=== PATIENT | male | born 1935 | race Caucasian/White ===

== ENCOUNTER 2016-08-11 10:33 | Outpatient (CLI) | payer MEDICARE ==
[~2016-08-11] VITALS: Ht 181.6 cm; Wt 83.0 kg
[2016-08-11] MEDS ORDERED: CHOL100045 PO (14:33)
[2016-08-11] MEDS ORDERED: VITA400T9 PO (14:33)
[2016-08-11] MEDS ORDERED: MULT1TAB69 PO (14:33)
[2016-08-12] MEDS ORDERED: PANT40TA3 PO (10:00)
== END 2016-08-11 14:35 ==
LOC: PREOP 10:33
PROVIDERS: ATTEND Internal Medicine
DX: Z01.818 Encounter for other preprocedural examination (principal); R10.13 Epigastric pain

== ENCOUNTER 2016-08-12 08:20 | Day surgery (SDC) | payer MEDICARE, OTHER ==
--- NOTE | 2016-08-11 17:12 | HISTORY AND PHYSICAL ---
DATE OF SERVICE: HISTORY OF PRESENT ILLNESS: The patient is an 81-year-old white male who presented to my office the morning of 08/11/2016 reporting about a 4-month history of reflux sounding symptoms getting progressively worse. He had a particularly bad episode when he was bending forward working on some fence this weekend. He felt fluid coming up into his throat, a burning sensation. He then became lightheaded and had to sit down. He denied associated chest pain. On several occasions, he has had to sit up at night due to fluid sensation in his throat. He has had epigastric pain with this, but again denies chest pain. He reports diminished appetite and has been feeling more fatigued as of late. He has not been aware of melena or bright red blood per rectum. He denies lower quadrant abdominal pain, but has had right upper quadrant and epigastric pain. He mentioned these symptoms to Dr. 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 He was set up for sonogram next week. Nausea has not been a predominant symptom. He denies any pain radiating through to his back, but there is a strong family history for cholecystitis necessitating gallbladder surgery in 2 first-degree relatives. PAST MEDICAL HISTORY: Is significant for past hypertension. He is not currently on medication. Blood pressures have been normal since significant weight loss following radiation therapy. His weight was down 1 pound compared to last office weight 4 months ago. He has no known history of coronary artery disease or pulmonary disease. SOCIAL HISTORY: He is retired. He was a previous head of the athletic department at [employer] with no past smoking history and no significant drinking history. PHYSICAL EXAMINATION: GENERAL: Reveals an elderly white male who appears to be in mild distress, reporting epigastric discomfort. Reporting mild epigastric discomfort. VITAL SIGNS: Blood pressure 130/76, heart rate 72 and regular. HEENT: Significant for absence of the right zygomatic arch with facial depression. There is a nodular area on the right forehead, above the right eyebrow with a little bit of central on vellication measuring 1 x 1 cm in size. There is small amount of desquamating material in the center. It is nontender. The patient reports it has been stable in size for last month and then present for about 2 months. He had been given some cream to apply per Dr. Loomis. He has poor dentition with reduction in jaw range of motion. Bottom front teeth are gone. CHEST: Clear. CARDIOVASCULAR: Revealed a regular rate and rhythm without murmur, S3 or S4. ABDOMEN: Soft, supple. Mild epigastric discomfort to palpation was present without mass or organomegaly. Bowel sounds are positive. No bruits are noted. EXTREMITIES: Reveal no cyanosis, clubbing or edema. ASSESSMENT AND PLAN: 1. Epigastric pain. The patient was set up for esophagogastroduodenoscopy evaluation for further investigation. Acute cholecystitis is in the differential, but I feel a little less likely. The patient is on no prescription medication and denies aspirin or nonsteroidal medication use. He will remain n.p.o. after midnight for esophagogastroduodenoscopy in the morning. 2. 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 Will probably recommend referral back to Dr. Loomis for excision. Job ID: [id number] DocumentID: [id number] Dictated Date: 08/11/2016 16:44:36 Bit Setter Date: 08/11/2016 17:12:28 Dictated By: KELSEY SMITH MD [facility]
[~2016-08-12] VITALS: Ht 181.6 cm; Wt 83.0 kg
[~2016-08-12 08:20] MED LIST: CHOL100045 PO; MULT1TAB69 PO; VITA400T9 PO
--- NOTE | 2016-08-12 08:32 | Pre-Op Note & Conscious Sedat ---
Pre-Operative Progress Note H&P Reviewed The H&P was reviewed, patient examined and no changes noted. Date H&P Reviewed: Aug 12, 2016 Time H&P Reviewed: 08:32 Conscious Sedation Pre-Proced ASA Class: 2 Airway Mallampati Classification: (pitka's point appropriate class) I. II. III, IV Lungs Heart ASA score ASA 1: a normal healthy patient ASA 2: a patient with a mild systemic disease (mid diabetes, controlled hypertension, obesity ASA 3: a patient with a severe systemic disease that limits activity (angina , COPD, prior Myocardial infarction) ASA 4: a patient with an incapacitating disease that is a constant threat to life (CHF, renal failure) ASA 5: a moribund patient not expected to survive 24 hrs. (ruptured aneurysm) ASA 6: a declared brain patient whose organs are being harvested. For emergent operations, add the letter E after the classification Grade 2 Sedation Plan: Analgesia, Amnesia, Plan communicated to team members, Discussed options with patient/fam, Discussed risks with patient/fam Note The patient is an appropriate candidate to undergo the planned procedure, sedation, and anesthesia. The patient immediately re-assessed prior to indication. KELSEY SMITH MD Aug 12, 2016 08:32
[2016-08-12 08:35] VITALS: BP 143/79
[2016-08-12] MEDS ORDERED: D5 LR IV SOLUTION 1,000 ML IV PRN (08:35)
[2016-08-12] MEDS ORDERED: NALOXONE 0.4 MG/ML 1 ML (NARCAN) VIAL IVP PRN (08:45)
[2016-08-12] MEDS ORDERED: HURRICAINE EXT TUBE (BENZOCAINE) XX PRN (08:45)
[2016-08-12] MEDS ORDERED: MIDAZOLAM 2 MG/2 ML (VERSED) VIAL IVP PRN (08:45)
[2016-08-12] MEDS ORDERED: LIDOCAINE JELLY 2% (XYLOCAINE) 5 ML TUBE MM PRN (08:45)
[2016-08-12] MEDS ORDERED: fentaNYL INJECTION 100 MCG/2 ML AMP IVP PRN (08:45)
[2016-08-12] MEDS ORDERED: FLUMAZENIL (ROMAZICON) 0.1 MG/ML 5 ML VIAL INJ PRN (08:45)
[2016-08-12] MEDS ORDERED: LIDOCAINE JELLY 2% (XYLOCAINE) 5 ML TUBE ONE (09:12)
[2016-08-12] MEDS ORDERED: MIDAZOLAM 2 MG/2 ML (VERSED) VIAL ONE ×3 (09:12→09:13)
[2016-08-12] MEDS ORDERED: fentaNYL INJECTION 100 MCG/2 ML AMP ONE (09:12)
[2016-08-12] MEDS ORDERED: HURRICAINE EXT TUBE (BENZOCAINE) ONE (09:13)
[2016-08-12] MEDS ORDERED: PANT40TA3 PO (10:00)
[2016-08-12 10:10] VITALS: BP 108/58
[2016-08-12 10:28] LABS: BASOPHILS % (AUTO) 0 % (0-10); EOSINOPHILS # (AUTO) 0.1 10^3/uL (0.0-0.3); EOSINOPHILS % (AUTO) 3 % (0-10); LYMPHOCYTES # (AUTO) 1.1 X 10^3 (1.0-4.0); LYMPHOCYTES % (AUTO) 22 % (12-44); MEAN CORPUSCULAR HEMOGLOBIN 30 PG (25-34); MEAN CORPUSCULAR HGB CONC 33 G/DL (32-36); MEAN CORPUSCULAR VOLUME 90 FL (80-99); MEAN PLATELET VOLUME 9.1 FL (7.4-10.4); MONOCYTES # (AUTO) 0.5 X 10^3 (0.0-1.0); MONOCYTES % (AUTO) 10 % (0-12); NEUTROPHILS # (AUTO) 3.3 X 10^3 (1.8-7.8); NEUTROPHILS % (AUTO) 65 % (42-75); PLATELET COUNT 185 10^3/uL (130-400); RED BLOOD COUNT 4.46 10^6/uL (4.35-5.85); RED CELL DISTRIBUTION WIDTH 12.4 % (10.0-14.5); WHITE BLOOD COUNT 5.1 10^3/uL (4.3-11.0)
[2016-08-12 10:40] VITALS: BP 130/67
[2016-08-12 10:47] VITALS: BP 130/67
[2016-08-12 10:56] LABS: ALANINE AMINOTRANSFERASE 12 U/L (0-55); ALBUMIN 3.7 GM/DL (3.2-4.5); ANION GAP 9 MMOL/L (5-14); ASPARTATE AMINO TRANSFERASE 18 U/L (5-34); BILIRUBIN,TOTAL 0.7 MG/DL (0.1-1.0); BLOOD UREA NITROGEN 14 MG/DL (7-18); BUN/CREATININE RATIO 13 (0-20); CARBON DIOXIDE 24 MMOL/L (21-32); CHLORIDE 108 MMOL/L (98-107); CREATININE SERUM 1.04 MG/DL (0.60-1.30); GFR ESTIMATED > 60; GLUCOSE 109 MG/DL (70-105); HEMOLYSIS 7 (-100-29); ICTERUS 0.5 (-100-1.9); LIPEMIA 5 (-100-49); POTASSIUM 4.5 MMOL/L (3.6-5.0); SODIUM 141 MMOL/L (135-145); TOTAL PROTEIN 7.1 GM/DL (6.4-8.2)
--- NOTE | 2016-08-12 12:38 | OPERATIVE REPORT ---
DATE OF SERVICE: ESOPHAGOGASTRODUODENOSCOPY SUMMARY EGD is performed for the evaluation of epigastric pain with reflux sounding symptoms. DESCRIPTION OF PROCEDURE: The patient was placed in the left lateral decubitus position. The endoscope was inserted in the oral cavity and under direct visualization the esophagus was intubated. Endoscope was passed down the esophagus through the stomach and second portion of the duodenum. Careful inspection was made as the endoscope was withdrawn. The patient tolerated the procedure well. FINDINGS: Posterior hypopharynx, arytenoid aperture and true and false vocal folds were unremarkable. Photographic documentation was obtained. Proximal and mid esophagus were unremarkable. There were 2 erosions noted in the distal esophagus roughly 3 and 7 cm proximal to the GE junction. The lower esophageal sphincter was somewhat narrowed and widely patent through the procedure, measuring roughly 2 x 2 cm in diameter with erythema and shallow ulcerations. Findings compatible with LA grade IV reflux esophagitis. No nodularity was noted. No evidence to suggest Martin's change was present. Photograph was obtained and then multiple biopsies were obtained and submitted for histopathology. This did not have the appearance of a ring. Small to medium size hiatal hernia is present with several centimeters of the stomach being present above the level of the diaphragm. The cardia of the stomach was unremarkable. Antral erythema with several small erosions were noted. Biopsies obtained and submitted for histopathology and Helicobacter evaluation. The Pylorus and the pyloric channel were unremarkable. There were patchy areas of duodenal inflammation and several shallow erosions. The second portion of the duodenum was slightly erythematous with no erosion or ulceration. ASSESSMENT AND PLAN: LA grade IV erosive esophagitis by definition with stricture formation was present. It was widely patent, roughly measuring 2 x 2 cm in size. The patient denies dysphagia, just notes free reflux due to this and a hiatal hernia. The patient also had antral and to a lesser extent fundal gastritis in addition to duodenitis. Considering this, a gastrin level, a CBC and a CMP were sent off prior to the initiation of proton pump inhibitor therapy in the form of pantoprazole 40 mg daily. I will have the patient follow up in 1 month to monitor his progress. Further recommendations pending blood testing. Considering a small but real possibility for Brayan-Fraser syndrome. The patient does not report any problems with diarrhea at this time. Job ID: [id number] DocumentID: [id number] Dictated Date: 08/12/2016 11:48:34 Cabinet Mounter Date: 08/12/2016 12:37:34 Dictated By: KELSEY SMITH MD
--- OUTSIDE RECORDS SUMMARY | 2016-08-17 12:15 | XMS REPORT | Continuity of Care Document ---
Author Author [facility] Organization [facility] Address Unknown Phone Unavailable Care Team Providers Care Waste And Batting Waste Chopper Name Role Phone Ramirez Rick Amor PCP [phone] Source Comments Some departments are not documenting in the electronic medical record. If you do not see the information that you expected, contact Release of Information in the Health Information Management department at [phone] for further assistance in locating additional records.[facility] Active Allergies and Adverse Reactions No Known Allergies Current Medications Prescription Sig. Disp. Refills Start End Date Status Date DM/P-EPHED/ACETAMINOPH/DO Take by mouth at bedtime Active XYLAM (NYQUIL PO) daily. ACETAMINOPHEN/DIPHENHYDRA Take by mouth at bedtime Active MINE (TYLENOL PM PO) daily. MINERAL Place into or around Active OIL/PETROLATUM,WHITE eye(s). (SYSTANE NIGHTTIME OP) NAPROXEN SODIUM (ALEVE Take by mouth as Needed. Active PO) psyllium (METAMUCIL) Take by mouth as Needed. Active packet OXYCODONE HCL (OXYCODONE Take by mouth. Active PO) Active Problems Problem Noted Date Carcinoma of maxillary sinus (HCC) 10/28/2010 Personal history of irradiation 10/28/2010 Swelling, mass, or lump in head and neck 03/06/2008 Social History Tobacco Use Types Packs/Day Years Used Date Former Smoker Cigarettes 0.5 15 Quit: 02/27/1970 Smokeless Tobacco: Never Used Alcohol Use Drinks/Week oz/Week Comments No Last Filed Vital Signs Vital Sign Reading Time Taken Blood Pressure 162/89 07/09/2015 9:47 AM CDT Pulse 53 07/09/2015 9:47 AM CDT Temperature 36.4 C (97.5 F) 07/03/2013 9:15 AM CDT Respiratory Rate - - Height 1.803 m (5' 11") 07/09/2015 9:47 AM CDT Weight 82.283 kg (181 lb 6.4 oz) 07/09/2015 9:47 AM CDT Body Mass Index 25.31 07/09/2015 9:47 AM CDT Oxygen Saturation 96% 07/03/2013 9:15 AM CDT Plan of Care Health Maintenance Due Date Last Done Comments Physical (Comprehensive) 1942 Exam Pertussis Vaccine 1946 Tetanus Vaccine 1952 Shingles Vaccine 1995 Prevnar/Pneumovax (#1) 2000 Influenza Vaccine 10/28/2016 Results from Last 3 Months Not on file
--- OUTSIDE RECORDS SUMMARY | 2016-08-17 12:15 | XMS REPORT | Continuity of Care Document ---
Author Author [facility] Organization [facility] Address Unknown Phone Unavailable Allergies Active Description Code Type Severity Reaction Onset Reported/Identified Relationship to Patient Clinical Status Yes No Known Drug Allergies [id number] Drug Allergy Unknown N/ A 08/12/2016 Medications Problems Date Dx Coded Attending Type Code Diagnosis Diagnosed By 08/07/2014 ALLEN GROSS, JOHN Khan Ot 160.2 08/07/2014 ALLEN GROSS, JOHN Khan Ot 525.9 08/07/2014 ALLEN GROSS, JOHN Khan Ot 526.89 08/14/2014 ALLEN GROSS, JOHN Khan Ot 160.2 08/14/2014 ALLEN GROSS, JOHN Khan Ot 525.9 08/14/2014 ALLEN GROSS, JOHN Khan Ot 526.89 08/19/2014 ALLEN GROSS, JOHN Khan Ot 160.2 08/19/2014 ALLEN GROSS, JOHN Khan Ot 525.9 08/19/2014 ALLEN GROSS, JOHN Khan Ot 526.89 08/20/2014 ALLEN GROSS, JOHN Khan Ot 160.2 08/20/2014 ALLEN GROSS, JOHN Khan Ot 525.9 08/20/2014 ALLEN GROSS, JOHN Khan Ot 526.89 08/25/2014 ALLEN GROSS, JOHN Khan Ot 160.2 08/25/2014 ALLEN GROSS, JOHN Khan Ot 525.9 08/25/2014 ALLEN GROSS, JOHN Khan Ot 526.89 08/25/2014 ALLEN GROSS, JOHN Khan Ot 160.2 08/25/2014 ALLEN GROSS, JOHN Khan Ot 525.9 08/25/2014 ALLEN GROSS, JOHN Khan Ot 526.89 09/01/2014 ALLEN GROSS, JOHN Khan Ot 160.2 MAL IAN MAXILLARY SINUS 09/01/2014 ALLEN GROSS, JOHN Khan Ot 525.9 DENTAL DISORDER NOS 09/01/2014 ALLEN GROSS, JOHN Khan Ot 526.89 JAW DISEASE NEC 09/02/2014 ALLEN GROSS, JOHN Khan Ot 160.2 09/02/2014 JOHN VILLA MD Ot 525.9 09/02/2014 ALLEN GROSS, JOHN Khan Ot 526.89 09/04/2014 ALLEN GROSS, JOHN Khan Ot 160.2 09/04/2014 ALLEN GROSS, JOHN Khan Ot 525.9 09/04/2014 ALLEN GROSS, JOHN Khan Ot 526.89 Procedures Results Test Result Range Complete blood count (CBC) with automated white blood cell (WBC) differential - 08/12/16 10:17 Blood leukocytes automated count (number/volume) 5.1 10*3/ uL 4.3-11.0 Blood erythrocytes automated count (number/volume) 4.46 10*6 /uL 4.35-5.85 Venous blood hemoglobin measurement (mass/volume) 13.4 g/dL 13.3-17.7 Blood hematocrit (volume fraction) 40 % 40-54 Automated erythrocyte mean corpuscular volume 90 [foz_us] 80-99 Automated erythrocyte mean corpuscular hemoglobin (mass per erythrocyte) 30 pg 25-34 Automated erythrocyte mean corpuscular hemoglobin concentration measurement ( mass/volume) 33 g/dL 32-36 Automated erythrocyte distribution width ratio 12.4 % 10.0-14.5 Automated blood platelet count (count/volume) 185 10*3/uL 130-400 Automated blood platelet mean volume measurement 9.1 [foz_us ] 7.4-10.4 Automated blood neutrophils/100 leukocytes 65 % 42-75 Automated blood lymphocytes/100 leukocytes 22 % 12-44 Blood monocytes/100 leukocytes 10 % 0-12 Automated blood eosinophils/100 leukocytes 3 % 0-10 Automated blood basophils/100 leukocytes 0 % 0-10 Blood neutrophils automated count (number/volume) 3.3 10*3 1.8-7.8 Blood lymphocytes automated count (number/volume) 1.1 10*3 1.0-4.0 Blood monocytes automated count (number/volume) 0.5 10*3 0.0-1.0 Automated eosinophil count 0.1 10*3/uL 0.0-0.3 Automated blood basophil count (count/volume) 0.0 10*3/uL 0.0-0.1 Comprehensive metabolic panel - 08/12/16 10:17 Serum or plasma sodium measurement (moles/volume) 141 mmol/ L 135-145 Serum or plasma potassium measurement (moles/volume) 4.5 mmol/L 3.6-5.0 Serum or plasma chloride measurement (moles/volume) 108 mmol /L 98-107 Carbon dioxide 24 mmol/L 21-32 Serum or plasma anion gap determination (moles/volume) 9 mmol/L 5-14 Serum or plasma urea nitrogen measurement (mass/volume) 14 mg/dL 7-18 Serum or plasma creatinine measurement (mass/volume) 1.04 mg /dL 0.60-1.30 Serum or plasma urea nitrogen/creatinine mass ratio 13 0-20 Serum or plasma creatinine measurement with calculation of estimated glomerular filtration rate > NRG Serum or plasma glucose measurement (mass/volume) 109 mg/dL 70-105 Serum or plasma calcium measurement (mass/volume) 9.0 mg/dL 8.5-10.1 Serum or plasma total bilirubin measurement (mass/volume) 0.7 mg/dL 0.1-1.0 Serum or plasma alkaline phosphatase measurement (enzymatic activity/volume) 83 U/L 40-136 Serum or plasma aspartate aminotransferase measurement (enzymatic activity/ volume) 18 U/L 5-34 Serum or plasma alanine aminotransferase measurement (enzymatic activity/volume ) 12 U/L 0-55 Serum or plasma protein measurement (mass/volume) 7.1 g/dL 6.4-8.2 Serum or plasma albumin measurement (mass/volume) 3.7 g/dL 3.2-4.5 Serum gastrin measurement - 08/12/16 10:17 Serum gastrin measurement < pg/mL 0-100 Encounters ACCT No. Visit Date/Time Discharge Status Pt. Type Provider Facility Loc./Unit Complaint [id number] 08/12/2016 08:20:00 2016 10:55:00 DIS Outpatient KELSEY SMITH MD [facility] ENDO EPIGASTRIC PAIN [id number] 08/11/2016 10:33:00 2016 14:35:00 DIS Outpatient KELSEY SMITH MD [facility] PREOP EPIGASTRIC PAIN [id number] 09/01/2014 08:21:00 2014 10:00:00 DIS Outpatient JOHN VILLA MD [facility] WOUNDCARE [id number] 08/16/2016 08:00:00 PEN Preadmit LUPILLO SADLER APRN [facility] RAD RUQ PAIN,NAUSEA,REFLUX
== END 2016-08-12 10:55 | disposition home or self-care (01) ==
LOC: ENDO 08:20
PROVIDERS: ATTEND Internal Medicine
DX: K20.8 Other esophagitis (principal); K44.9 Diaphragmatic hernia without obstruction or gangrene; K29.50 Unspecified chronic gastritis without bleeding; K29.80 Duodenitis without bleeding; Z85.22 Personal history of malignant neoplasm of nasal cavities, middle ear, and accessory sinuses; Z92.3 Personal history of irradiation
CPT/HCPCS: 36415; 80053; 82941; 85025

== ENCOUNTER → 2016-08-16 | Outpatient (CLI) | payer MEDICARE, OTHER ==
[~2016-08-16] MED LIST changes: +HYDR-3816 PO; +PANT40TA3 PO
--- NOTE | 2016-08-16 09:58 | Diagnostic Imaging Report ---
PROCEDURE: US Gallbladder. TECHNIQUE: Multiple real-time grayscale images were obtained over the right upper quadrant in various projections. INDICATION: Right upper quadrant pain. FINDINGS: The pancreas is obscured by bowel gas. The left hepatic lobe demonstrates a complex lesion with cystic components, septations, and a hyperechoic focus within it. There is no internal vascularity demonstrated. The lesion measures 1.6 x 2 x 1.7 cm and is probably a complicated cyst with septations and mild debris. Through transmission is noted. A minimally complicated cyst in the right hepatic lobe is also seen measuring 2 x 2.3 cm. The gallbladder demonstrates a mobile 2.5 cm stone. No wall thickening or pericholecystic fluid. The sonographic Humphrey sign is reportedly negative. The CBD is obscured by bowel gas. The right kidney is 10 cm in length. There is a 1.7 cm upper pole right kidney cyst. No hydronephrosis. No ascites or fluid collection. IMPRESSION: Cholelithiasis. Minimally complicated hepatic cysts are seen. The left hepatic cyst is associated with internal echogenicity which is probably related to internal debris. A followup ultrasound in 4 months is recommended to ensure stability. Dictated by: Dictated on workstation # [id number]
== END ==
LOC: RAD 07:38
PROVIDERS: ATTEND Nurse Practitioner Family
DX: K80.20 Calculus of gallbladder without cholecystitis without obstruction (principal); K76.89 Other specified diseases of liver; K21.9 Gastro-esophageal reflux disease without esophagitis
CPT/HCPCS: 76705

== ENCOUNTER 2016-08-17 09:13 | Outpatient (CLI) | payer MEDICARE, OTHER ==
[~2016-08-17] VITALS: Ht 181.6 cm; Wt 83.0 kg
[~2016-08-17 09:13] MED LIST changes: -HYDR-3816 PO
[2016-08-18] MEDS ORDERED: HYDR-3816 PO (16:54)
== END 2016-08-17 10:12 ==
LOC: PREOP 09:13
PROVIDERS: ATTEND Surgery Pediatric Surgery
DX: Z01.818 Encounter for other preprocedural examination (principal); K80.20 Calculus of gallbladder without cholecystitis without obstruction

== ENCOUNTER 2016-08-18 10:32 | Day surgery (SDC) | payer MEDICARE, OTHER ==
[~2016-08-18] VITALS: Ht 181.6 cm; Wt 83.0 kg
--- NOTE | 2016-08-18 10:44 | Progress Note-Pre Operative ---
Pre-Operative Progress Note H&P Reviewed The H&P was reviewed, patient examined and no changes noted. Date Seen by Provider: Aug 18, 2016 Time Seen by Provider: 10:44 Date H&P Reviewed: Aug 18, 2016 Time H&P Reviewed: 10:44 Pre-Operative Diagnosis: chronic calculous cholecystitis JURGEN PITTS MD Aug 18, 2016 10:44 am
[2016-08-18] MEDS ORDERED: ACETAMINOPHEN 325 MG TABLET/CAPLET (TYLENOL) PO PRN (10:45)
[2016-08-18] MEDS ORDERED: morphine INJ 10 MG/ML 1ML (SYR OR VIAL) IVP PRN (10:45)
[2016-08-18] MEDS ORDERED: ONDANSETRON 4 MG/2 ML (SDV) Z0FRAN IVP PRN ×2 (10:45→17:00)
[2016-08-18] MEDS ORDERED: HYDROcodone/APAP 5 MG/325 MG (LORTAB) TAB PO ONE (10:45)
[2016-08-18 11:10] LABS: MEAN PLATELET VOLUME 9.5 FL (7.4-10.4); RED BLOOD COUNT 4.51 10^6/uL (4.35-5.85); RED CELL DISTRIBUTION WIDTH 12.9 % (10.0-14.5); WHITE BLOOD COUNT 4.6 10^3/uL (4.3-11.0)
[2016-08-18] MEDS ORDERED: CATHETER FLUSH 10 ML SYR IV PRN (11:15)
[2016-08-18] MEDS ORDERED: ceFAZolin 1 GM/NS 50 ML IVPB IV ONE ×2 (11:15)
[2016-08-18] MEDS ORDERED: LACTATED RINGERS 1,000 ML IV PRN (11:21)
[2016-08-18 11:25] VITALS: BP 153/77
[2016-08-18] MEDS ORDERED: FAMOTIDINE 20MG/2ML IV (PEPCID) IV ONE (11:30)
[2016-08-18] MEDS ORDERED: BUP/EPI 0.5% 1:200,000 (SENSORCAINE) 30 ML VIAL ONE (13:27)
[2016-08-18] MEDS ORDERED: ONDANSETRON 4 MG/2 ML (SDV) Z0FRAN ONE (14:51)
[2016-08-18] MEDS ORDERED: DEXAMETHASONE PF 10 MG/ML (DECADRON) VIAL ONE (14:51)
[2016-08-18] MEDS ORDERED: MIDAZOLAM 2 MG/2 ML (VERSED) VIAL ONE (14:51)
[2016-08-18] MEDS ORDERED: fentaNYL INJECTION 100 MCG/2 ML AMP ONE (14:51)
[2016-08-18] MEDS ORDERED: SEVOFLURANE (ULTANE) 15 ML INHAL SOLN ONE (14:51)
[2016-08-18] MEDS ORDERED: LACTATED RINGERS 1,000 ML IV ONE ×2 (14:51→16:37)
[2016-08-18] MEDS ORDERED: ROCURONIUM 50 MG/5 ML (ZEMURON) VIAL IV ONE (14:51)
[2016-08-18] MEDS ORDERED: PROPOFOL INJECTION 50 ML IV ONE (14:51)
[2016-08-18] MEDS ORDERED: SUCCINYLCHOLINE INJ 100 MG/5 ML SYR ONE (15:02)
[2016-08-18] MEDS ORDERED: LIDOCAINE PF 0.5% 50 ML (XYLOCAINE) VIAL ONE (15:04)
[2016-08-18] MEDS ORDERED: NEOSTIGMINE (BLOXIVERZ ) 1 MG/1ML 10 ML VIAL ONE (16:34)
[2016-08-18] MEDS ORDERED: GLYCOPYRROLATE 0.2 MG/ML (ROBINUL) 2 ML VIAL ONE (16:34)
[2016-08-18] MEDS ORDERED: ATROPINE INJ 0.4 MG/ML SDV ONE (16:37)
--- NOTE | 2016-08-18 16:53 | Progress Note-Post Operative ---
Post-Operative Progess Note Surgeon (s)/Cattle Trader (s) Surgeon JURGEN PITTS MD Cattle Trader: erin webster IDENTIFICATION OFFICER Pre-Operative Diagnosis chronic calculous cholecystitis Post-Operative Diagnosis same Procedure & Operative Findings Date of Procedure 08/18/16 Procedure Performed/Findings laparoscopic cholecystectomy Anesthesia Type GET Estimated Blood Loss Estimated blood loss (mL): minimal Specimens/Packing Specimens Removed gallbladder JURGEN PITTS MD Aug 18, 2016 4:53 pm
[2016-08-18] MEDS ORDERED: HYDR-3816 PO (16:54)
--- NOTE | 2016-08-18 16:55 | Discharge Inst-Surgical ---
D/C Lap Instructions-GISSELLE New, Converted, or Re-Newed RX: RX on Chart Follow Up Appt in 2 weeks Activity as tolerated No driving for 24 hours No driving while on pain medications Incentive Spirometry use every 2 hours while awake Regular Diet Symptoms to Report: Fever over 101 degree F, Nausea/Vomiting Infection Signs and Symptoms to report: Increased redness, Foul odor of wound, Increased drainage Bathing instructions: May shower Operative Area Clean/Dry; Keep incision clean/dry If any problems/questions: Contact your physician or go to Emergency Room JURGEN PITTS MD Aug 18, 2016 4:55 pm
[2016-08-18] MEDS ORDERED: MEPERIDINE (DEMEROL) INJ 50 MG/ML IVP PRN (17:00)
[2016-08-18] MEDS: morphine INJ 10 MG/ML 1ML (SYR OR VIAL) IVP PRN ×2 (17:17→17:24)
[2016-08-18 17:50] VITALS: BP 177/79
[2016-08-18] MEDS ORDERED: HYDROcodone/APAP 7.5 MG/325 MG (LORTAB, LORCET PLUS) TABLET PO PRN (18:00)
--- NOTE | 2016-08-18 19:16 | OPERATIVE REPORT ---
DATE OF SERVICE: 08/18/2016 ATTENDING PRIMARY CARE PHYSICIAN: Rick Ramirez MD. PREOPERATIVE DIAGNOSIS: Chronic calculous cholecystitis. POSTOPERATIVE DIAGNOSIS: Chronic calculous cholecystitis. PROCEDURE: Laparoscopic cholecystectomy. SURGEON: Jurgen Pitts MD. UNIVERSITY SERVICES PROGRAM ASSOCIATE: Venkatesh Plummer APRN. ANESTHESIA: General endotracheal. ESTIMATED BLOOD LOSS: Minimal. FINDINGS: Chronic gallbladder wall dilatation as well as one large solitary gallstone. DISPOSITION: The patient tolerated the procedure well. INDICATIONS: The patient is an 81-year-old male with right upper abdominal quadrant pain. He has also had issues with reflux, nausea as well as right upper abdominal quadrant pain with radiation towards the back that would occur more after eating meals. He had a CT scan performed which did show gallstones; however, this was asymptomatic at that time. He reports that this has become much more symptomatic over time. DESCRIPTION OF PROCEDURE: The patient was brought to the operating room, laid supine on the table. After adequate IV pain and sedating medications and general endotracheal intubation, the abdomen was prepped and draped in standard surgical fashion. A 0.5% Marcaine with epinephrine was then used to anesthetize the overlying skin in the left upper abdominal quadrant. A small transverse skin incision made using a 15 blade. An 0 silk suture was applied to the medial aspect of the incision for retraction and a Veress needle was inserted with a low opening pressure of 0 mmHg and the abdomen was insufflated to 15 mmHg pressure. The Veress needle removed and a 5 mm Xcel trocar placed followed by a 5 mm 45-degree angle laparoscope. A four-quadrant abdominal exploration was performed. A dilated gallbladder with chronic inflammatory changes was identified. There were no signs of acute cholecystitis. The liver, omentum, stomach and small bowel appeared normal. Under direct visualization, we then proceeded to place a supraumbilical 10 mm port after the skin and peritoneum were anesthetized using 0.5% Marcaine and a transverse skin incision made using a 15 blade. In a similar manner, a right upper abdominal quadrant opening 5 mm port was placed. The patient was then placed in reverse Trendelenburg position as well as plane right side up, left side down. The fundus of the gallbladder was then retracted anteriorly and superiorly. The hepatoduodenal ligament was then dissected using electrocautery and hook instrument. The entire critical view of safety was then identified including the cystic duct and artery going into the gallbladder, the triangle of Calot as well as the liver behind the proximal gallbladder. A timeout was then taken and the cystic duct and artery were clipped proximally, distally and cut with EndoShears. The gallbladder was then dissected off the liver bed using electrocautery on the hook instrument with visualization of good hemostasis. The gallbladder was removed through the 10 mm port site using an EndoCatch bag. The fascia and peritoneum to the 10 mm port site was then closed using multiple 3-0 Vicryl interrupted sutures using the Flo-Noah device. The abdomen was desufflated and remaining ports removed. All skin incisions were closed using 4-0 Monocryl running subcuticular sutures. Wounds were then cleaned and covered with Dermabond. The patient tolerated the procedure well. We will start IV and oral pain medication as well as a clear liquid diet. Once he is tolerating clears and has good pain control with oral pain medication and is ambulating well, we will discharge him home. Job ID: [id number] DocumentID: [id number] Dictated Date: 08/18/2016 17:01:04 Will Call Clerk Date: 08/18/2016 19:16:04 Dictated By: JURGEN PITTS MD MTDD
[2016-08-18 20:00] VITALS: BP 171/77
[2016-08-18 20:55] VITALS: BP 171/77
--- NOTE | 2016-08-19 07:56 | Anesthesia-General Post-Op ---
General Patient Condition Mental Status/LOC: Same as Preop Cardiovascular: Satisfactory Nausea/Vomiting: Absent Respiratory: Satisfactory Pain: Controlled Complications: Absent Post Op Complications Complications None Follow Up Care/Instructions Patient Instructions None needed. Anesthesia/Patient Condition Patient Condition Patient is doing well, no complaints, stable vital signs, no apparent adverse anesthesia problems. No complications reported per nursing. D/C home per [facility] Criteria: Yes STEVE WALTERS CRNA Aug 19, 2016 07:56
--- OUTSIDE RECORDS SUMMARY | 2016-08-22 13:39 | XMS REPORT | Continuity of Care Document ---
Author Author [facility] Organization [facility] Address Unknown Phone Unavailable Care Team Providers Care Fabric Stretcher Name Role Phone Ramirez Rick Amor PCP [phone] Source Comments Some departments are not documenting in the electronic medical record. If you do not see the information that you expected, contact Release of Information in the Health Information Management department at [phone] for further assistance in locating additional records.[facility] Active Allergies and Adverse Reactions No Known [...]
--- OUTSIDE RECORDS SUMMARY | 2016-08-22 13:39 | XMS REPORT | Continuity of Care Document ---
Author Author [facility] Organization [facility] Address Unknown Phone Unavailable Allergies Active Description Code Type Severity Reaction Onset Reported/Identified Relationship to Patient Clinical Status Yes No Known Drug Allergies [id number] Drug Allergy Unknown N/ A 08/12/2016 Medications [...] 09/04/2014 ALLEN GROSS, JOHN Khan Ot 526.89 08/20/2016 KELSEY SMITH MD, Ot K20.8 OTHER ESOPHAGITIS 08/20/2016 KELSEY SMITH MD, Ot K29.50 UNSPECIFIED CHRONIC GASTRITIS WITHOUT BL 08/20/2016 KELSEY SMITH MD, Ot K29.80 DUODENITIS WITHOUT BLEEDING 08/20/2016 KELSEY SMITH MD, Ot K44.9 DIAPHRAGMATIC HERNIA WITHOUT OBSTRUCTION 08/20/2016 KELSEY SMITH MD, Ot 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[place], [place] 08/20/2016 KELSEY SMITH MD, Ot Z92.3 PERSONAL HISTORY OF IRRADIATION Procedures Results Test Result Range Complete blood [...] 10:17 Serum gastrin measurement < pg/mL 0-100 Automated blood complete blood count (hemogram) panel - 08/18/16 10:55 Blood leukocytes automated count (number/volume) 4.6 10*3/ uL 4.3-11.0 Blood erythrocytes automated count (number/volume) 4.51 10*6 /uL 4.35-5.85 Venous blood hemoglobin measurement (mass/volume) 13.6 g/dL 13.3-17.7 Blood hematocrit (volume fraction) 40 % 40-54 Automated erythrocyte mean corpuscular volume 89 [foz_us] 80-99 Automated erythrocyte mean corpuscular hemoglobin (mass per erythrocyte) 30 pg 25-34 Automated erythrocyte mean corpuscular hemoglobin concentration measurement ( mass/volume) 34 g/dL 32-36 Automated erythrocyte distribution width ratio 12.9 % 10.0-14.5 Automated blood platelet count (count/volume) 177 10*3/uL 130-400 Automated blood platelet mean volume measurement 9.5 [foz_us ] 7.4-10.4 Methicillin resistant Staphylococcus aureus (MRSA) screening culture - 10:55 Methicillin resistant Staphylococcus aureus (MRSA) screening culture NEG NRG Encounters ACCT No. Visit Date/Time Discharge Status Pt. Type Provider Facility Loc./Unit Complaint [id number] 08/18/2016 10:32:00 2016 21:05:00 DIS Outpatient JURGEN PITTS MD [facility] SDC [place] [id number] 08/17/2016 09:13:00 2016 10:12:00 DIS Outpatient JURGEN PITTS MD [facility] PREOP [place] [id number] 08/12/2016 08:20:00 2016 10:55:00 DIS Outpatient KELSEY SMITH MD [facility] ENDO EPIGASTRIC PAIN [id number] 08/11/2016 10:33:00 2016 14:35:00 DIS Outpatient KELSEY SMITH MD [facility] PREOP EPIGASTRIC PAIN [id number] 09/01/2014 08:21:00 2014 10:00:00 DIS Outpatient JOHN VILLA MD [facility] WOUNDCARE [id number] 08/16/2016 07:38:00 ACT Outpatient LUPILLO SADLER APRN [facility] RAD RUQ PAIN,NAUSEA,REFLUX
== END 2016-08-18 21:05 | disposition home or self-care (01) ==
LOC: SDC 10:32 → 4TH 18:16 → SDC 21:05
PROVIDERS: ATTEND Surgery
DX: K80.10 Calculus of gallbladder with chronic cholecystitis without obstruction (principal); I10 Essential (primary) hypertension; Z85.22 Personal history of malignant neoplasm of nasal cavities, middle ear, and accessory sinuses; Z87.891 Personal history of nicotine dependence
CPT/HCPCS: 36415; 85027; 87081; 94664

== ENCOUNTER → 2017-10-26 | Outpatient (CLI) | payer MEDICARE, OTHER ==
[~2017-10-26] MED LIST changes: +HYDR-34 PO
== END ==
LOC: LABNPT 16:42
PROVIDERS: ATTEND Specialist
DX: M27.2 Inflammatory conditions of jaws (principal); Z92.3 Personal history of irradiation
CPT/HCPCS: 87070; 87077; 87205

== ENCOUNTER → 2017-10-31 | Outpatient (CLI) | payer MEDICARE, OTHER | LOC: WOUNDCARE 12:17 | PROVIDERS: ATTEND Surgery | DX: M27.2 Inflammatory conditions of jaws (principal); L59.8 Other specified disorders of the skin and subcutaneous tissue related to radiation; C31.0 Malignant neoplasm of maxillary sinus | CPT/HCPCS: 99212 ==

== ENCOUNTER → 2017-11-15 | Outpatient (CLI) | payer MEDICARE, OTHER | LOC: WOUNDCARE 08:09 | PROVIDERS: ATTEND Surgery | DX: M27.2 Inflammatory conditions of jaws (principal); L59.8 Other specified disorders of the skin and subcutaneous tissue related to radiation; C31.0 Malignant neoplasm of maxillary sinus | CPT/HCPCS: 99212 ==

== ENCOUNTER → 2017-11-17 | Outpatient (CLI) | payer MEDICARE, OTHER ==
[2017-11-17 08:22] LABS: BASOPHILS % (AUTO) 0 % (0-10); EOSINOPHILS # (AUTO) 0.1 10^3/uL (0.0-0.3); EOSINOPHILS % (AUTO) 3 % (0-10); HEMATOCRIT 40 % (40-54); HEMOGLOBIN 13.8 G/DL (13.3-17.7); LYMPHOCYTES # (AUTO) 1.3 X 10^3 (1.0-4.0); LYMPHOCYTES % (AUTO) 32 % (12-44); MEAN CORPUSCULAR HEMOGLOBIN 31 PG (25-34); MEAN CORPUSCULAR HGB CONC 34 G/DL (32-36); MEAN CORPUSCULAR VOLUME 89 FL (80-99); MEAN PLATELET VOLUME 9.3 FL (7.4-10.4); MONOCYTES # (AUTO) 0.5 X 10^3 (0.0-1.0); MONOCYTES % (AUTO) 11 % (0-12); NEUTROPHILS # (AUTO) 2.2 X 10^3 (1.8-7.8); NEUTROPHILS % (AUTO) 54 % (42-75); PLATELET COUNT 197 10^3/uL (130-400); RED BLOOD COUNT 4.52 10^6/uL (4.35-5.85); RED CELL DISTRIBUTION WIDTH 13.2 % (10.0-14.5); WHITE BLOOD COUNT 4.1 10^3/uL (4.3-11.0)
[2017-11-17 08:43] LABS: ALANINE AMINOTRANSFERASE 13 U/L (0-55); ALKALINE PHOSPHATASE 90 U/L (40-136); BILIRUBIN,TOTAL 0.6 MG/DL (0.1-1.0); BUN/CREATININE RATIO 14; CALCIUM 9.2 MG/DL (8.5-10.1); CARBON DIOXIDE 23 MMOL/L (21-32); CHLORIDE 109 MMOL/L (98-107); GFR ESTIMATED > 60; GLUCOSE 97 MG/DL (70-105); POTASSIUM 4.1 MMOL/L (3.6-5.0); SODIUM 140 MMOL/L (135-145); TOTAL PROTEIN 7.3 GM/DL (6.4-8.2)
== END ==
LOC: LAB 08:08
PROVIDERS: ATTEND Surgery
DX: M27.2 Inflammatory conditions of jaws (principal); L59.8 Other specified disorders of the skin and subcutaneous tissue related to radiation; C31.0 Malignant neoplasm of maxillary sinus
CPT/HCPCS: 36415; 80053; 85025

== ENCOUNTER → 2017-11-22 | Outpatient (CLI) | payer MEDICARE, OTHER | LOC: WOUNDCARE 07:56 | PROVIDERS: ATTEND Surgery | DX: M27.2 Inflammatory conditions of jaws (principal); L59.8 Other specified disorders of the skin and subcutaneous tissue related to radiation; C31.0 Malignant neoplasm of maxillary sinus | CPT/HCPCS: 99212 ==

== ENCOUNTER 2017-11-24 08:00 | Outpatient (RCR) | payer MEDICARE, OTHER | END 2017-11-26 | disposition home or self-care (01) | LOC: WOUNDCARE 08:00 | PROVIDERS: ATTEND Surgery | DX: M27.2 Inflammatory conditions of jaws (principal); L59.8 Other specified disorders of the skin and subcutaneous tissue related to radiation; C31.0 Malignant neoplasm of maxillary sinus | CPT/HCPCS: 99183 ==

== ENCOUNTER → 2017-11-29 | Outpatient (CLI) | payer MEDICARE, OTHER | LOC: WOUNDCARE 07:59 | PROVIDERS: ATTEND Surgery | DX: M27.2 Inflammatory conditions of jaws (principal); L59.8 Other specified disorders of the skin and subcutaneous tissue related to radiation; C31.0 Malignant neoplasm of maxillary sinus | CPT/HCPCS: 99212 ==

== ENCOUNTER → 2017-12-06 | Outpatient (CLI) | payer MEDICARE, OTHER | LOC: WOUNDCARE 07:57 | PROVIDERS: ATTEND Surgery | DX: M27.2 Inflammatory conditions of jaws (principal); L59.8 Other specified disorders of the skin and subcutaneous tissue related to radiation; C31.0 Malignant neoplasm of maxillary sinus | CPT/HCPCS: 99212 ==

== ENCOUNTER → 2017-12-13 | Outpatient (CLI) | payer MEDICARE, OTHER | LOC: WOUNDCARE 07:59 | PROVIDERS: ATTEND Surgery | DX: M27.2 Inflammatory conditions of jaws (principal); L59.8 Other specified disorders of the skin and subcutaneous tissue related to radiation; C31.0 Malignant neoplasm of maxillary sinus | CPT/HCPCS: 99212 ==

== ENCOUNTER → 2017-12-20 | Outpatient (CLI) | payer MEDICARE, OTHER | LOC: WOUNDCARE 07:56 | PROVIDERS: ATTEND Surgery | DX: M27.2 Inflammatory conditions of jaws (principal); L59.8 Other specified disorders of the skin and subcutaneous tissue related to radiation; C31.0 Malignant neoplasm of maxillary sinus | CPT/HCPCS: 99212 ==

== ENCOUNTER → 2017-12-27 | Outpatient (CLI) | payer MEDICARE, OTHER | LOC: WOUNDCARE 07:56 | PROVIDERS: ATTEND Surgery | DX: M27.2 Inflammatory conditions of jaws (principal); L59.8 Other specified disorders of the skin and subcutaneous tissue related to radiation; C31.0 Malignant neoplasm of maxillary sinus; L98.492 Non-pressure chronic ulcer of skin of other sites with fat layer exposed | CPT/HCPCS: 99212 ==

== ENCOUNTER → 2018-01-03 | Outpatient (CLI) | payer MEDICARE, OTHER | LOC: WOUNDCARE 12:21 | PROVIDERS: ATTEND Surgery | DX: M27.2 Inflammatory conditions of jaws (principal); L59.8 Other specified disorders of the skin and subcutaneous tissue related to radiation; C31.0 Malignant neoplasm of maxillary sinus; L98.496 Non-pressure chronic ulcer of skin of other sites with bone involvement without evidence of necrosis | CPT/HCPCS: 99212 ==

== ENCOUNTER 2018-01-10 08:59 | Outpatient (RCR) | payer MEDICARE, OTHER | END 2018-01-10 12:00 | disposition home or self-care (01) | LOC: WOUNDCARE 08:59 | PROVIDERS: ATTEND Surgery | DX: M27.2 Inflammatory conditions of jaws (principal); L59.8 Other specified disorders of the skin and subcutaneous tissue related to radiation; C31.0 Malignant neoplasm of maxillary sinus | CPT/HCPCS: 99183 ==

== ENCOUNTER → 2018-01-10 | Outpatient (CLI) | payer MEDICARE, OTHER | LOC: WOUNDCARE 08:58 | PROVIDERS: ATTEND Orthopaedic Surgery Hand Surgery | DX: M27.2 Inflammatory conditions of jaws (principal); L59.8 Other specified disorders of the skin and subcutaneous tissue related to radiation; C31.0 Malignant neoplasm of maxillary sinus | CPT/HCPCS: 99212 ==

== ENCOUNTER 2020-11-25 05:30 | Outpatient (RCR) | payer MEDICARE, OTHER ==
[~2020-11-25] VITALS: Ht 180.3 cm; Wt 68.0 kg
[~2020-11-25 05:30] MED LIST changes: +ASCO100T6 PO; +ASPI-586 PO; +ATOR40TA PO; +CYAN200014 PO; +CYCL10TA9 PO; +MULT-567 PO; -MULT1TAB69 PO; -PANT40TA3 PO; +PANT40TA52 PO; +SILD100T67 PO
== END 2020-11-25 11:13 | disposition home or self-care (01) ==
LOC: PREOP 05:30
PROVIDERS: ATTEND Internal Medicine
DX: Z01.812 Encounter for preprocedural laboratory examination (principal); R13.10 Dysphagia, unspecified; R63.4 Abnormal weight loss; Z20.822 Contact with and (suspected) exposure to COVID-19
CPT/HCPCS: 87635

== ENCOUNTER 2020-11-27 08:53 | Day surgery (SDC) | payer MEDICARE, OTHER ==
--- NOTE | 2020-11-19 06:08 | HISTORY AND PHYSICAL ---
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 He reports that generally he has been feeling well, but he has had 2 episodes of dysphagia. The last one was yesterday to chicken, he swallowed some water, but did not feel like it went down after he ate chicken, it took about 15 minutes for symptoms to subside. He denied any coughing or choking. Prior to that it had happened with the popcorn 4 or 5 days ago. Previously, he denied dysphagia. He was unaware of weight loss, but his weight was down to an all time low for him at 170.6 representing a 7.6 pound weight loss since I last weighed him in April of this year. He denies melena or bright red blood per rectum. He denies epigastric or abdominal pain. He has rare episodes of heartburn and he does not usually take anything for. FAMILY HISTORY: Pertinent for son with esophageal cancer diagnosed in his 50s. 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 He was diagnosed in 12/2017 and had extensive surgery, radiation, chemotherapy with no evidence for recurrence. PHYSICAL EXAMINATION: GENERAL: Reveals a white male, appears to be in no acute distress. VITAL SIGNS: Weight 170.6 pounds, blood pressure 120/70. 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 NECK: Revealed no JVD, adenopathy or bruits. CHEST: Clear to auscultation. CARDIOVASCULAR: Reveals a regular rate and rhythm without significant murmur, S3 or S4. ABDOMEN: Soft, supple without mass, organomegaly or tenderness. EXTREMITIES: Reveal no cyanosis, clubbing or edema. ASSESSMENT AND PLAN: 1. Dysphagia with weight loss. The patient is being set up for EGD based the symptoms alone, but in addition, his son was diagnosed with esophageal cancer in his 50s. He was given high dose flu shot today with followup appointment in 6 months, at which time we will need to repeat blood testing including a basic metabolic panel and lipid panel with CBC. 2. Not mentioned above, the patient requested Viagra refill for his erectile dysfunction, which has worked well for him in the past. He was given 300 mg Viagra. Job ID: [id number] DocumentID: [id number] Dictated Date: 11/12/2020 11:33:13 Cell Tester Date: 11/12/2020 11:57:20 Dictated By: KELSEY SMITH MD [facility]
[~2020-11-27] VITALS: Ht 180.3 cm; Wt 68.0 kg
[2020-11-27] MEDS ORDERED: LACTATED RINGERS 1,000 ML IV STA (09:07)
[2020-11-27] MEDS ORDERED: LIDOCAINE JELLY 2% 6 ML SYRINGE MM PRN (09:15)
[2020-11-27] MEDS ORDERED: HURRICAINE EXT TUBE (BENZOCAINE) XX PRN (09:15)
[2020-11-27 09:16] VITALS: BP 159/76
[2020-11-27] MEDS ORDERED: LACTATED RINGERS 1,000 ML IV ONE (09:16)
[2020-11-27] MEDS ORDERED: PROPOFOL INJECTION 50 ML IV ONE (10:32)
[2020-11-27] MEDS ORDERED: MIDAZOLAM 2 MG/2 ML (VERSED) VIAL ONE (10:32)
[2020-11-27] MEDS ORDERED: KETAMINE SYRINGE 50 MG/5 ML SYRINGE ONE (10:32)
--- NOTE | 2020-11-27 10:37 | Pre-Op Note & Conscious Sedat ---
Pre-Operative Progress Note H&P Reviewed The H&P was reviewed, patient examined and no changes noted. Date H&P Reviewed: Nov 27, 2020 Time H&P Reviewed: 10:00 Conscious Sedation Pre-Proced ASA Score 2 For ASA 3 and 4: Consider anesthesia and medical clearance. Also, for patients with a history of failed moderate sedation consider anesthesia. Airway Lungs Heart ASA score ASA 1: a normal healthy patient ASA 2: a patient with a mild systemic disease (mid diabetes, controlled hypertension, obesity ASA 3: a patient with a severe systemic disease that limits activity (angina, COPD, prior Myocardial infarction) ASA 4: a patient with an incapacitating disease that is a constant threat to life (CHF, renal failure) ASA 5: a moribund patient not expected to survive 24 hrs. (ruptured aneurysm) ASA 6: a declared brain- patient whose organs are being harvested. For emergent operations, add the letter E after the classification Mallampati Classification Grade 3 Sedation Plan Analgesia, Amnesia, Plan communicated to team members, Discussed options with patient/fam, Discussed risks with patient/fam The patient is an appropriate candidate to undergo the planned procedure, sedation, and anesthesia. The patient immediately re-assessed prior to indication. KELSEY SMITH MD Nov 27, 2020 10:37
[2020-11-27 10:55] VITALS: BP 135/65
[2020-11-27 11:00] VITALS: BP 140/72
[2020-11-27 11:05] VITALS: BP 138/68
[2020-11-27 11:10] VITALS: BP 138/68
[2020-11-27 11:30] VITALS: BP 156/69
--- NOTE | 2020-11-27 18:41 | OPERATIVE REPORT ---
DATE OF SERVICE: EGD SUMMARY INDICATION FOR THE PROCEDURE: Dysphagia, weight loss, and family history for esophageal cancer. DESCRIPTION OF PROCEDURE: The patient was placed in the left lateral decubitus position. The endoscope was inserted in the oral cavity and under direct visualization, the esophagus was intubated. The endoscope was passed down the esophagus through the stomach and then second portion of the duodenum. A careful inspection was made as the endoscope was withdrawn. The patient tolerated the procedure well. FINDINGS: The posterior pharynx, arytenoid aperture, epiglottis and true and false vocal folds were unremarkable. The proximal and mid esophagus were unremarkable. There is a 1 to 2 cm size hiatal hernia present. There was evidence for a ring without erosive esophagitis noted in the distal esophagus. Photograph was obtained. The patient then underwent dilatation to 20 mm size. There was usual small amount of bleeding post dilatation. The patient reported no pain and was discharged with stable vital signs, voicing no complaints. The cardia, fundus and antrum of the stomach were unremarkable. The pylorus, pyloric channel, duodenal bulb and second portion of the duodenum were unremarkable as well. ASSESSMENT: A 1 to 2 cm hiatal hernia was present with evidence for lower esophageal ring. The patient underwent dilatation and we did discuss the importance of careful attention to mastication and drinking at least a glass of water with all meals. We will see the patient back for regular followup. In the interim if he is having recurrence of dysphagia, he is to come in for an earlier evaluation. Job ID: [id number] DocumentID: [id number] Dictated Date: 11/27/2020 12:13:49 Freight Flagman Date: 11/27/2020 18:39:30 Dictated By: KELSEY SMITH MD
== END 2020-11-27 12:10 | disposition home or self-care (01) ==
LOC: ENDO 08:53
PROVIDERS: ATTEND Internal Medicine
DX: K22.2 Esophageal obstruction (principal); K44.9 Diaphragmatic hernia without obstruction or gangrene; I10 Essential (primary) hypertension; R63.4 Abnormal weight loss; Z80.0 Family history of malignant neoplasm of digestive organs; Z79.899 Other long term (current) drug therapy; Z68.20 Body mass index [BMI] 20.0-20.9, adult